=== PATIENT | male | born 1980 | race Caucasian/White ===

== ENCOUNTER → 2018-08-03 13:56 | Outpatient (CLI) | payer OTHER, MEDICAID, SELFPAY ==
[2018-08-03 14:24] LABS: Add Manual Diff / Slide Review NO; Basophils Absolute Auto 100 /uL (0-100); Basophils Percent Auto 0.9 % (0-2); Eosinophils Absolute Auto 100 /uL (0-450); Hematocrit 44.6 % (41-53); Hemoglobin 14.9 g/dL (13.5-17.5); Lymphocytes Absolute Auto 2400 /uL (1100-4500); Lymphocytes Percent Auto 35.5 % (25-40); Mean Corpuscular HGB Conc 33.3 % (30-36); Mean Corpuscular Hemoglobin 30.3 PG (26-34); Mean Corpuscular Volume 90.9 fL (80-100); Monocytes Absolute Auto 400 /uL (0-900); Monocytes Percent Auto 6.5 % (3-14); Neutrophils Absolute Auto 3800 /uL (1500-7000); Neutrophils Percent Auto 56.1 % (50-75); Platelet Count 260 X10^3/uL (150-400); Red Cell Distribution Width 13.7 % (11.6-14.8); White Blood Cell Count 6.7 X10^3/uL (4.5-11.0)
[2018-08-03 14:39] LABS: Alanine Aminotransferase 141 IU/L (21-72); Albumin 5.3 g/dL (3.5-5.0); Albumin Globulin Ratio 1.6 (1.0-2.8); Alkaline Phosphatase 66 U/L (38-126); Aspartate Aminotransferase 98 IU/L (17-59); Blood Urea Nitrogen 18 mg/dL (9-20); Calcium 10.1 mg/dL (8.4-10.2); Carbon Dioxide 26 mmol/L (22-32); Chloride 96 mmol/L (98-107); Estimated Glomerular Filt Rate > 60.0 mL/min (>60); Globulin 3.4 g/dL (1.7-4.1); Glucose 86 mg/dL (70-100); HEMOLYSIS < 15 (0-50); Potassium 3.8 mmol/L (3.4-5.1); Sodium 137 mmol/L (137-145); Total Protein 8.7 g/dL (6.3-8.2)
[2018-08-03 15:12] LABS: TSH w/ Reflex to FT4 2.51 uIU/mL (0.47-4.68)
== END ==
PROVIDERS: PCP Family Medicine; Visit Provider Family Medicine
DX: R53.83 Other fatigue (principal)
CPT/HCPCS: 36415; 80053; 84443; 85025

== ENCOUNTER 2021-02-08 04:57 | Emergency (ER) | payer OTHER, SELFPAY ==
[2021-02-08 05:08] VITALS: BP 170/101; PULSE 99; RESP 20; TEMP 36.8; O2SAT 100; BMI 32.2
--- NOTE | 2021-02-08 05:09 | DI.RAD.S_ITS ---
PROCEDURE: XR ANKLE RT MIN 3V INDICATIONS: ankle injury, pain, swelling lateral malleolus TECHNIQUE: 3 views of the ankle were acquired. COMPARISON: None. FINDINGS: Bones: No fractures or dislocations. There is a longitudinal cortical lucency in the distal fibula. Ankle mortise is normally aligned. No suspicious bony lesions. Soft tissues: No tibiotalar joint effusion. Achilles tendon appears normal. Mild soft tissue swelling in the anterior and lateral aspect of the ankle. IMPRESSION: No definitive fracture. There is a longitudinal cortical lucency in the distal fibula. If clinical symptoms persist or clinical suspicion for pathology is high, a repeat examination in 7-10 days, or advanced imaging such as CT or MRI is suggested for further evaluation. No significant discrepancy with the carpet measurer radiology preliminary report. Dictated by: Daniel Tovar M.D. on 02/08/2021 at 8:36 Approved by: Daniel Tovar M.D. on 02/08/2021 at 8:38
--- NOTE | 2021-02-08 05:18 | ED_ITS ---
HPI - Extremity Injury (Lower) General Chief Complaint: Extremity Injury, Lower Stated Complaint: Right ankle pain since Thursday/throbbing Time Seen by Provider: 02/08/21 05:01 Source: patient Mode of arrival: Wheelchair Limitations: no limitations History of Present Illness HPI Narrative: 40-year-old male nonsmoker with noncontributory medical history presents with a chief complaint of increasing right ankle pain and swelling over the past few days. He states that he stepped awkwardly at work a few days ago and felt a bit of a pull in his ankle, but it wasn't a terrible injury. He's been having increasing pain and swelling since the injury. His pain is worse with ambulation and improves with rest. He denies fever, chills, redness, or other. He denies knee, calf, hip pain. He denies recent travel, history of blood clot or history of gout. Related Data Previous Rx's Medication Instructions Recorded diazepam 5 mg tablet (Valium) 5 mg PO ONCE #1 tab 05/26/19 hydrocodone 5 mg-acetaminophen 325 1 tab PO Q4-6H PRN #15 tab 02/08/21 mg tablet Allergies Allergy/AdvReac Type Severity Reaction Status Date / Time No Known Drug Allergies Allergy Verified 02/08/21 05:08 Review of Systems Review of Systems Narrative: GENERAL: Denies chills, fatigue, malaise, fever, sweats. HEENT: Denies sinus pain, ear pain, sore throat, difficulty swallowing, dizziness. RESPIRATORY: Denies dyspnea, cough, wheezing, hemoptysis, sputum. CARDIOVASCULAR: Denies chest pain, palpitations, orthopnea, edema, GASTROINTESTINAL: Denies nausea, vomiting, abdominal pain, diarrhea, constipation, melena. : Denies dysuria, frequency, incontinence, hematuria, urinary retention. MUSCULOSKELETAL: See HPI SKIN: Denies rash, skin lesions, or other NEUROLOGIC: Denies weakness, headache, numbness, change in speech, confusion, seizures, incoordination. PSYCHIATRIC: No concerning psychosocial issues. 12 point review of systems is negative except for those stated above Patient History Medical History (Updated 02/08/21 @ 05:36 by Bert Toribio DO) Chicken pox Hearing loss Surgical History Anesthesia Status post appendectomy (~2012) Family History Mother Age: 64 Hypertension High cholesterol Social History marital status: number of children: 3 household members: family lives independently: Yes occupational status: employed Smoking Status: Never smoker alcohol intake: current substance use type: does not use Smoking Status: Never smoker alcohol intake frequency: 3 or more drinks per day Substance Use Type: does not use Exam Narrative Exam Narrative: GEN: AOx3 and in mild distress EYES: Pupils are equal, round, and reactive to light and accommodation. Extraoccular muscles are intact bilaterally. There is no subconjunctival hemorrhage or exudate. CHEST: Lungs are clear to auscultation bilaterally and free of wheezes, rales, or rhonchi. Heart rate is regular rhythm, there are no murmurs, clicks, rubs, or gallops. There is no chest wall tenderness. ABD: Abdomen is soft and nontender. There is no guarding or rebound. Bowel sounds are normal in all 4 quadrants. There is no mass or organomegaly. EXT: Full but painful range of motion of right ankle with swelling over lateral malleolus and tender to palpate. No induration, erythema or fluctuance, no red streaks. SKIN: Warm, pink, and dry. No erythema or rash Initial Vital Signs Initial Vital Signs: Vital Signs Temperature 98.2 F 02/08/21 05:08 Pulse Rate 99 H 02/08/21 05:08 Respiratory Rate 20 02/08/21 05:08 Blood Pressure 170/101 H 02/08/21 05:08 Pulse Oximetry 100 02/08/21 05:08 Course Orders Ordered: ED Orders 02/08/21 05:09 XR ankle RT min 3V Stat Discontinued Medications Ibuprofen (Ibuprofen 400 Mg Tablet) 800 mg PO NOW ONE Stop: 02/08/21 05:40 Last Admin: 02/08/21 05:43 Dose: 800 mg Documented by: Vital Signs Vital signs: Vital Signs - 8 hr 02/08/21 05:08 Temperature 98.2 F Pulse Rate 99 H Respiratory Rate 20 Blood Pressure 170/101 H Pulse Oximetry 100 MDM - Extremity Injury (Lower) Imaging Data Extremity x-ray #1: My Impression: mild nondisplaced distal fibula fx Radiologist's Impression: Cortical regularity with sub cm vertical lucency at the tip of the distal fibula can represent a nondisplaced fracture in the appropriate clinical setting MDM Narrative Medical decision making narrative: Patient did have an injury though not high velocity or thought to be significant at the time. Swelling and pain have increased over the past few days, pain and swelling in the location of x-ray abnormality. Other diagnoses such as infection, clot, gout considered but thoug ht unlikely given lack of erythema, warmth and elements of the history. Patient given return precautions, questions answered to his apparent satisfaction Discharge Plan Departure Patient Disposition: Home Clinical Impression: Fracture of distal end of fibula Qualifiers: Encounter type: initial encounter Fracture type: closed Fracture morphology: other fracture Laterality: right Qualified Code(s): S82.831A - Other fracture of upper and lower end of right fibula, initial encounter for closed fracture Instructions: DI for Ankle Fracture Activity Restrictions/Additional Instructions: *You have been diagnosed with [Right ankle pain and swelling, with possible distal fibular fracture ] *What to do: *Please continue to take your regular medications as directed. [ x] New medication prescriptions sent to your pharmacy: [ [facility] in [place]] [ ] New medication written as a paper prescription [x] Tylenol and occasional Motrin for pain *Please follow up with [Isacc ] of [facility] in 2-3 days, call for an appointment. Let them know you were seen in the Emergency Department and that we ask that you be seen in follow up. We will electronically transmit a record of today's note if your PCP is in our system *Weight bearing as tolerated until follow up *Return to Emergency Department if you should have any new, worsening or concerning symptoms, such as [worsening pain, significant swelling, cold extremities, numbness, tingling, weakness or other bothersome symptoms You have been prescribed a short course of narcotic medications. These are potentially dangerous and addictive medications that should be used carefully. While on these medications you cannot drive or operate heavy machinery. Additionally, you cannot sign legal documents or perform any duties such as this. Many people get constipated on narcotic medications so it would be advisable to discuss stool softeners with the pharmacist when you parts picker your prescription. Please understand that we cannot provide further refills of narcotics or controlled substances through the ED and your pain management will need to be through your Primary Care Provider Prescriptions: New hydrocodone-acetaminophen 5-325 mg tablet 1 tab PO Q4-6H PRN (Reason: pain) Qty: 15 RF: 0 No Action diazepam [Valium] 5 mg tablet 5 mg PO ONCE Qty: 1 RF: 0 Referrals: Umer Garcias MD [Primary Care Provider] - Josep Dexter MD [Physician] -
[2021-02-08] MEDS: IBUPROFEN 400 MG TABLET 800 MG PO (05:43)
== END 2021-02-08 06:31 | disposition home or self-care (01) ==
PROVIDERS: Emergency Provider Emergency Medicine; PCP Family Medicine
DX: S82.831A Other fracture of upper and lower end of right fibula, initial encounter for closed fracture (principal); X50.1XXA Overexertion from prolonged static or awkward postures, initial encounter; Y99.0 Civilian activity done for income or pay
CPT/HCPCS: 73610; 99283

== ENCOUNTER → 2022-07-29 14:29 | Outpatient (CLI) | payer OTHER, SELFPAY ==
[2022-07-29 16:44] LABS: Semen Sperm Prescence Post-Vas Absent (ABSENT)
== END ==
PROVIDERS: PCP Family Medicine; Referring Provider Family Medicine; Visit Provider Family Medicine
DX: Z98.52 Vasectomy status (principal)
CPT/HCPCS: 89321